=== PATIENT | male | born 1945 | race Caucasian/White ===

== ENCOUNTER 2023-07-30 15:24 | Emergency (ER) | payer OTHER, BC ==
[2023-07-30 15:47] VITALS: PULSE 70; RESP 19; TEMP 97.3; BMI 28.3
[2023-07-30] MEDS: ACETAMINOPHEN 500 MG TABLET (FP) PO ONE (15:59)
[2023-07-30] MEDS ORDERED: ACETAMINOPHEN INJECTION 100 ML IVPB ONE (16:00)
[2023-07-30] MEDS: ACETAMINOPHEN 1000 MG/100 ML BAG IVPB ONE (16:18)
[2023-07-30 16:26] LABS: BASO % 0.6 % (0-2.0); EOS % 2.4 % (0-4.5); HEMATOCRIT 42.9 % (35.4-49); HEMOGLOBIN 14.3 GM/dL (11.7-16.9); LYMPH % 15.8 % (8-40); MCH 28.9 pg (25.7-33.7); MCHC 33.3 g/dl (32.0-35.9); MEAN CELL VOLUME 86.8 fl (80-96); MEAN PLT VOLUME 8.1 fl (7.5-11.1); MONO % 11.3 % (3.8-10.2); NEUT % 69.9 % (42.8-82.8); PLATELET COUNT 288 10^3/uL (134-434); RBC 4.94 M/mm3 (4.00-5.60); RDW 15.2 % (11.9-15.9); WHITE BLOOD COUNT 8.5 K/mm3 (4.0-10.0)
[2023-07-30 16:36] LABS: INR 1.46 (0.83-1.09); PROTHROMBIN TIME (PATIENT) 16.9 SEC (9.7-13.0)
[2023-07-30 16:38] LABS: ACTIVATED PTT 35.8 SECONDS (25.2-36.5); POTASSIUM 4.1 mmol/L (3.5-5.1)
[2023-07-30 16:40] LABS: ALBUMIN 3.8 g/dl (3.4-5.0); BLOOD UREA NITROGEN 36.6 mg/dL (7-18); CALCIUM 8.8 mg/dL (8.5-10.1)
[2023-07-30 16:43] LABS: CREATININE 2.1 mg/dL (0.55-1.3)
[2023-07-30 16:45] LABS: BILIRUBIN,TOTAL 0.6 mg/dL (0.2-1); TOT PROT 7.3 g/dl (6.4-8.2)
[2023-07-30] MEDS: SODIUM CHLORIDE 0.9% 500 ML INFUS.BAG IV ONE (17:06)
[2023-07-30] MEDS ORDERED: LIDOCAINE 4% PATCH TP ONE (17:37)
[2023-07-30] MEDS: LIDOCAINE 4% PATCH TP ONE (17:42)
[2023-07-30 18:31] VITALS: BP 177/72
[2023-07-30] MEDS ORDERED: LIDOCAINE PATCH REMOVAL MC SCH (22:00)
== END 2023-07-30 19:06 | disposition home or self-care (01) ==
LOC: JER 15:24
PROC: 3E033NZ Introduction of Analgesics, Hypnotics, Sedatives into Peripheral Vein, Percutaneous Approach (ICD-10-PCS; principal; 2023-07-30)
DX: S00.81XA Abrasion of other part of head, initial encounter (principal); R42 Dizziness and giddiness; W01.198A Fall on same level from slipping, tripping and stumbling with subsequent striking against other object, initial encounter; Y92.481 Parking lot as the place of occurrence of the external cause
CPT/HCPCS: 36415; 70450-TC; 71046-TC-FY; 72125-TC; 80053; 83735; 84484; 85025; 85610; 85730; 93005; 93010; 99285-25; J0131